=== PATIENT | male | born 1985 | race Caucasian/White ===

== ENCOUNTER 2016-11-27 20:00 | Emergency (ER) | payer OTHER ==
[~2016-11-27] VITALS: Ht 185.4 cm; Wt 97.5 kg
[2016-11-27] MEDS ORDERED: HYDROmorphone HCL 1 MG/ML SYRINGE (J1170) IV ONE (21:00)
[2016-11-27 22:44] VITALS: BP 121/71
--- NOTE | 2016-11-28 02:09 | REP ---
Clinical: Trauma. Technique: Internal rotation, external rotation, and Y view. Findings: External rotation view demonstrates widening of the acromioclavicular joint suggesting grade II/III AC joint separation. The glenohumeral joint is intact. No acute fracture or glenohumeral joint dislocation noted. Surrounding soft tissues are unremarkable. Impression: Grade II/III AC joint separation Signed by Travis Oliver MD 11/28/2016 02:01 A
== END 2016-11-27 22:46 | disposition home or self-care (01) ==
LOC: M ED 21:10
DX: S43.101A Unspecified dislocation of right acromioclavicular joint, initial encounter (principal); V86.59XA Driver of other special all-terrain or other off-road motor vehicle injured in nontraffic accident, initial encounter; Y92.410 Unspecified street and highway as the place of occurrence of the external cause; Y93.89 Activity, other specified; Y99.8 Other external cause status; G89.29 Other chronic pain; F17.200 Nicotine dependence, unspecified, uncomplicated

== ENCOUNTER → 2016-11-27 | Outpatient (CLI) | payer OTHER ==
[~2016-11-27] MED LIST: AMBI10TA PO; DILA2TAB2 PO; DULC10SU2 PR; DULO30CA PO; MIRA3350 PO; MOM30SS PO; NAPR500T2 PO; NEUR600T PO; NICO14DI3 TD; NORCOTAB PO; OXYC30TA72 PO; PERC5TAB6 PO; ROBA500T PO; SENO8.6T10 PO; SOMA350T PO; XANA1TAB2 PO
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
== END ==
LOC: M ADAMS 18:11
PROVIDERS: ATTEND Physician Assistant Medical
DX: S43.101A Unspecified dislocation of right acromioclavicular joint, initial encounter (principal); Y93.55 Activity, bike riding; V18.2XXA Unspecified pedal cyclist injured in noncollision transport accident in nontraffic accident, initial encounter; Y99.8 Other external cause status

== ENCOUNTER 2023-02-03 13:36 | Emergency (ER) | payer OTHER ==
[~2023-02-03] VITALS: Ht 185.4 cm; Wt 100.1 kg
[~2023-02-03 13:36] MED LIST changes: -DILA2TAB2 PO; +DILA2TAB6 PO; -DULO30CA PO; +DULO30CA9 PO; +HYDR-3715 PO; +NAPR-885 PO; -NAPR500T2 PO; -NORCOTAB PO; +PERC5TAB12 PO; -PERC5TAB6 PO
[2023-02-03] MEDS ORDERED: ONDANSETRON 4MG 2ML VIAL IV ONE (14:10)
[2023-02-03] MEDS ORDERED: MORPHINE 4 MG/ML 1ML VIAL IV ONE (14:10)
[2023-02-03 14:34] LABS: BASO # 0.1 10^3/uL (0.0-0.2); BASO % 0.9 % (0.0-1.0); EOS # 0.1 10^3/uL (0.0-0.5); EOS % 1.5 % (0.0-3.0); HEMATOCRIT 47.5 % (42.0-52.0); HEMOGLOBIN 15.7 g/dl (13.5-17.5); LYMPH % 20.9 % (24.0-44.0); MEAN CORPUSCULAR HEMOGLOBIN 27.5 pg (27.0-33.0); MEAN CORPUSCULAR HGB CONC 33.1 g/dl (32.0-36.5); MEAN CORPUSCULAR VOLUME 83.2 fl (80.0-96.0); MONO # 0.6 10^3/uL (0.0-0.8); MONO % 5.9 % (2.0-8.0); NEUTROPHILS # 6.6 10^3/uL (1.5-8.5); NEUTROPHILS % 70.4 % (36.0-66.0); PLATELET COUNT, AUTOMATED 256 10^3/uL (150-450); RED BLOOD COUNT 5.71 10^6/uL (4.30-6.10); WHITE BLOOD COUNT 9.4 10^3/uL (4.0-10.0)
[2023-02-03 14:42] LABS: ERYTHROCYTE SEDIMENTATION RATE 25 mm/hr (0-15)
[2023-02-03] MEDS ORDERED: ISOVUE-370 76% 100ML VIAL As Ordered ONE (14:42)
[2023-02-03] MEDS ORDERED: ACET-897 PO (14:49)
[2023-02-03] MEDS ORDERED: CLIN150C17 PO (14:49)
[2023-02-03] MEDS ORDERED: ADVICAP PO (14:49)
[2023-02-03] MEDS ORDERED: KETOROLAC 30 MG/ML 1ML VIAL IV ONE (15:45)
[2023-02-03] MEDS ORDERED: AMPICILLIN SOD/SULBACTAM SOD 3 GM in D5W MINI-BAG PLUS 100 ML IV ONE (16:00)
[2023-02-03] MEDS ORDERED: dexAMETHasone 20MG/5ML VIAL IV ONE (16:00)
[2023-02-03] MEDS ORDERED: PERC5TAB12 PO (16:06)
[2023-02-03 16:28] VITALS: BP 148/85; TEMP 98.3
[2023-02-03 16:55] VITALS: O2SAT 98
[2023-02-03] MEDS ORDERED: PERCOCET 5MG/325MG TAB PO ONE (16:55)
[2023-02-04] MEDS ORDERED: KETO10TAB PO (18:20)
== END 2023-02-03 17:22 | disposition home or self-care (01) ==
LOC: M ED 13:36
DX: K04.7 Periapical abscess without sinus (principal); F17.200 Nicotine dependence, unspecified, uncomplicated; Z79.1 Long term (current) use of non-steroidal anti-inflammatories (NSAID); Z79.899 Other long term (current) drug therapy
CPT/HCPCS: 70491; 80047; 83605; 85025; 85652; 86140; 87040; 96374; 96375; 99284; J0295; J1100; J1885; J2405; Q9967

== ENCOUNTER 2023-02-04 15:52 | Emergency (ER) | payer OTHER ==
[~2023-02-04] VITALS: Ht 185.4 cm; Wt 101.8 kg
[~2023-02-04 15:52] MED LIST changes: +ACET-897 PO; +ADVICAP PO; +CLIN150C17 PO
[2023-02-04] MEDS ORDERED: KETOROLAC 30 MG/ML 1ML VIAL IV ONE (16:50)
[2023-02-04] MEDS ORDERED: dexAMETHasone 20MG/5ML VIAL IV ONE (17:30)
[2023-02-04] MEDS ORDERED: AMPICILLIN SOD/SULBACTAM SOD 3 GM in D5W MINI-BAG PLUS 100 ML IV ONE (17:30)
[2023-02-04 17:36] LABS: BASO # 0.1 10^3/uL (0.0-0.2); BASO % 0.5 % (0.0-1.0); EOS # 0.1 10^3/uL (0.0-0.5); EOS % 0.5 % (0.0-3.0); HEMATOCRIT 45.6 % (42.0-52.0); HEMOGLOBIN 15.5 g/dl (13.5-17.5); LYMPH # 2.6 10^3/uL (1.5-5.0); LYMPH % 18.2 % (24.0-44.0); MEAN CORPUSCULAR HEMOGLOBIN 27.9 pg (27.0-33.0); MEAN CORPUSCULAR VOLUME 82.2 fl (80.0-96.0); MONO # 1.1 10^3/uL (0.0-0.8); MONO % 7.3 % (2.0-8.0); NEUTROPHILS # 10.5 10^3/uL (1.5-8.5); PLATELET COUNT, AUTOMATED 282 10^3/uL (150-450); RED BLOOD COUNT 5.55 10^6/uL (4.30-6.10); WHITE BLOOD COUNT 14.3 10^3/uL (4.0-10.0)
[2023-02-04 17:48] LABS: ERYTHROCYTE SEDIMENTATION RATE 20 mm/hr (0-15)
[2023-02-04 17:51] LABS: BLOOD UREA NITROGEN 20 MG/DL (9-23); CALCIUM LEVEL 9.1 MG/DL (8.5-10.1); CARBON DIOXIDE LEVEL 24 MMOL/L (20-31); CHLORIDE LEVEL 108 MMOL/L (98-107); CREATININE FOR GFR 0.71 MG/DL (0.70-1.30); GLOMERULAR FILTRATION RATE > 60.0 (>60); GLUCOSE, FASTING 97 MG/DL (60-100); POTASSIUM SERUM 3.7 MMOL/L (3.5-5.1); SODIUM LEVEL 143 MMOL/L (136-145)
[2023-02-04] MEDS ORDERED: PERCOCET 5MG/325MG TAB PO ONE (18:10)
[2023-02-04] MEDS ORDERED: KETO10TAB PO (18:20)
[2023-02-04] MEDS ORDERED: KETOROLAC TROMETHAMINE 10 MG TAB PO ONE (19:01)
[2023-02-04 19:03] VITALS: BP 158/105; TEMP 98.4; O2SAT 98
== END 2023-02-04 19:31 | disposition home or self-care (01) ==
LOC: M ED 15:52
DX: K04.7 Periapical abscess without sinus (principal); F17.200 Nicotine dependence, unspecified, uncomplicated; Z79.1 Long term (current) use of non-steroidal anti-inflammatories (NSAID); Z79.899 Other long term (current) drug therapy
CPT/HCPCS: 80048; 83605; 85025; 85652; 86140; 96374; 96375; 99283; J0295; J1100; J1885

== ENCOUNTER 2023-06-09 11:16 | Emergency (ER) | payer OTHER ==
[~2023-06-09] VITALS: Ht 185.4 cm; Wt 97.3 kg
[2023-06-09 11:16] VITALS: TEMP 98.1
[~2023-06-09 11:16] MED LIST changes: +KETO10TAB PO
[2023-06-09] MEDS ORDERED: KETOROLAC 30 MG/ML 1ML VIAL IV ONE ×2 (11:40→12:25)
[2023-06-09 11:49] LABS: BASO # 0.1 10^3/uL (0.0-0.2); EOS # 0.1 10^3/uL (0.0-0.5); EOS % 0.7 % (0.0-3.0); HEMATOCRIT 51.4 % (42.0-52.0); HEMOGLOBIN 17.7 g/dl (13.5-17.5); LYMPH # 1.9 10^3/uL (1.5-5.0); LYMPH % 18.6 % (24.0-44.0); MEAN CORPUSCULAR HEMOGLOBIN 28.2 pg (27.0-33.0); MEAN CORPUSCULAR HGB CONC 34.4 g/dl (32.0-36.5); MEAN CORPUSCULAR VOLUME 81.8 fl (80.0-96.0); MONO # 0.4 10^3/uL (0.0-0.8); MONO % 4.4 % (2.0-8.0); NEUTROPHILS # 7.5 10^3/uL (1.5-8.5); NEUTROPHILS % 74.8 % (36.0-66.0); PLATELET COUNT, AUTOMATED 268 10^3/uL (150-450); RED BLOOD COUNT 6.28 10^6/uL (4.30-6.10)
[2023-06-09 12:13] LABS: BLOOD UREA NITROGEN 14 MG/DL (9-23); CALCIUM LEVEL 9.2 MG/DL (8.5-10.1); CARBON DIOXIDE LEVEL 24 MMOL/L (20-31); CHLORIDE LEVEL 105 MMOL/L (98-107); CREATININE FOR GFR 0.82 MG/DL (0.70-1.30); GLOMERULAR FILTRATION RATE > 60.0 (>60); GLUCOSE, FASTING 101 MG/DL (60-100); POTASSIUM SERUM 4.9 MMOL/L (3.5-5.1); SODIUM LEVEL 138 MMOL/L (136-145)
[2023-06-09] MEDS ORDERED: ACETAMINOPHEN 500 MG TAB PO ONE (12:25)
[2023-06-09] MEDS ORDERED: KETO10TAB PO (12:41)
[2023-06-09] MEDS ORDERED: HYDR-3713 PO (12:42)
[2023-06-09 12:48] VITALS: BP 152/89; O2SAT 98
== END 2023-06-09 13:13 | disposition home or self-care (01) ==
LOC: M ED 11:16
DX: N20.1 Calculus of ureter (principal); Z87.891 Personal history of nicotine dependence
CPT/HCPCS: 74176; 80048; 81001; 85025; 96374; 96376; 99283; J1885

== ENCOUNTER 2024-04-30 01:28 | Emergency (ER) | payer OTHER ==
[~2024-04-30] VITALS: Ht 185.4 cm; Wt 102.3 kg
[~2024-04-30 01:28] MED LIST changes: +HYDR-3713 PO
[2024-04-30 03:47] VITALS: BP 159/74; TEMP 97.9; O2SAT 97
[2024-04-30] MEDS: ACETAMINOPHEN 325 MG TAB PO STA (03:48)
[2024-04-30] MEDS ORDERED: KETO10TAB PO (06:37)
[2024-04-30] MEDS ORDERED: CLEO300C2 PO (06:37)
[2024-04-30] MEDS: KETOROLAC 60MG 2ML VIAL IM ONE (06:51)
[2024-04-30] MEDS: CLINDAMYCIN 150MG CAPSULE PO ONE (06:51)
== END 2024-04-30 07:10 | disposition home or self-care (01) ==
LOC: M ED 01:28
DX: K04.7 Periapical abscess without sinus (principal); F41.9 Anxiety disorder, unspecified; F10.10 Alcohol abuse, uncomplicated; Z79.1 Long term (current) use of non-steroidal anti-inflammatories (NSAID); Z79.2 Long term (current) use of antibiotics; Z79.899 Other long term (current) drug therapy
CPT/HCPCS: 96372; 99283; J1885

== ENCOUNTER 2024-12-07 16:41 | Emergency (ER) | payer OTHER ==
[~2024-12-07] VITALS: Ht 185.4 cm; Wt 97.8 kg
[~2024-12-07 16:41] MED LIST changes: -AMBI10TA PO; +CLEO300C2 PO; +ZOLP-533 PO
[2024-12-07 18:03] LABS: BASO # 0.1 10^3/uL (0.0-0.2); BASO % 0.6 % (0.0-1.0); EOS # 0.2 10^3/uL (0.0-0.5); EOS % 1.4 % (0.0-3.0); HEMATOCRIT 49.8 % (42.0-52.0); HEMOGLOBIN 16.6 g/dl (13.5-17.5); LYMPH # 2.1 10^3/uL (1.5-5.0); LYMPH % 17.7 % (24.0-44.0); MEAN CORPUSCULAR HGB CONC 33.3 g/dl (32.0-36.5); MONO # 0.8 10^3/uL (0.0-0.8); MONO % 6.7 % (2.0-8.0); NEUTROPHILS # 8.7 10^3/uL (1.5-8.5); NEUTROPHILS % 73.3 % (36.0-66.0); PLATELET COUNT, AUTOMATED 227 10^3/uL (150-450); RED BLOOD COUNT 5.93 10^6/uL (4.30-6.10); WHITE BLOOD COUNT 11.8 10^3/uL (4.0-10.0)
[2024-12-07 18:08] LABS: ERYTHROCYTE SEDIMENTATION RATE 9 mm/hr (0-15)
[2024-12-07 18:21] LABS: ALBUMIN 4.1 G/DL (3.2-5.2); ALKALINE PHOSPHATASE 103 U/L (40-129); ALT/SGPT 26 U/L (7.0-40); AST/SGOT 13 U/L (<34); BILIRUBIN,DIRECT 0.1 MG/DL (<0.4); BILIRUBIN,TOTAL 0.3 MG/DL (0.3-1.2); BLOOD UREA NITROGEN 18 MG/DL (9-23); C REACTIVE PROTEIN QUANTITATIV 0.93 MG/DL (<1.0); CALCIUM LEVEL 9.4 MG/DL (8.5-10.1); CARBON DIOXIDE LEVEL 27 MMOL/L (20-31); CHLORIDE LEVEL 106 MMOL/L (98-107); CREATININE FOR GFR 0.75 MG/DL (0.70-1.30); GLOMERULAR FILTRATION RATE > 90.0 (>60); GLUCOSE, FASTING 111 MG/DL (60-100); POTASSIUM SERUM 4.4 MMOL/L (3.5-5.1); SODIUM LEVEL 141 MMOL/L (136-145)
[2024-12-07 18:33] LABS: PROCALCITONIN 0.04 ng/ml
[2024-12-07] MEDS: KETOROLAC 30 MG/ML 1ML VIAL IM ONE (18:48)
[2024-12-07] MEDS ORDERED: ISOVUE-370 76% 100ML VIAL As Ordered ONE (22:41)
[2024-12-07] MEDS: MORPHINE 4 MG/ML 1ML VIAL IV ONE (22:51)
[2024-12-07] MEDS: AMPICILLIN SOD/SULBACTAM SOD 3 GM in DEXTROSE 5% (D5W) MINI-BAG PLU 100 ML IV ONE (22:59)
[2024-12-08] MEDS ORDERED: KETO-204 PO (00:13)
[2024-12-08 00:18] VITALS: BP 135/73; TEMP 98; O2SAT 97
== END 2024-12-08 00:22 | disposition home or self-care (01) ==
LOC: M ED 16:41
DX: K12.2 Cellulitis and abscess of mouth (principal); K08.89 Other specified disorders of teeth and supporting structures; Z79.1 Long term (current) use of non-steroidal anti-inflammatories (NSAID); Z79.899 Other long term (current) drug therapy
CPT/HCPCS: 70487; 80048; 80076; 83605; 84145; 85025; 85652; 86140; 87040; 96372; 96374; 96375; 99284; J0295; J1100; J1885; Q9967